=== PATIENT | female | born 1980 | race Two or more races ===

== ENCOUNTER 2018-01-29 21:52 | Emergency (ER) | payer OTHER ==
[~2018-01-29] VITALS: Ht 162.6 cm; Wt 102.5 kg
[2018-01-30] MEDS ORDERED: INTESTINEX680 M1 PO (05:05)
[2018-01-30] MEDS ORDERED: FLAGYL500MG PO (05:05)
[2018-01-30] MEDS ORDERED: CIPRO500 MG PO (05:05)
== END 2018-01-30 07:07 | disposition home or self-care (01) ==
LOC: ER 21:52
DX: K62.89 Other specified diseases of anus and rectum (principal)

== ENCOUNTER 2018-06-29 09:19 | Day surgery (SDC) | payer OTHER ==
[~2018-06-29 09:19] MED LIST: CIPRO500 MG PO; FLAGYL500MG PO; INTESTINEX680 M1 PO; PANADOL EXTRA500 MG PO; SYNTHROID50 MCG PO
== END 2018-06-29 19:00 | disposition home or self-care (01) ==
LOC: CIR.AMB 09:19
DX: K60.5 Anorectal fistula (principal)

== ENCOUNTER 2019-01-18 07:17 | Day surgery (SDC) | payer OTHER | END 2019-01-18 16:50 | disposition home or self-care (01) | LOC: CIR.AMB 07:17 | DX: K60.3 Anal fistula (principal); K64.4 Residual hemorrhoidal skin tags ==